=== PATIENT | female | born 1995 | race Caucasian/White ===

== ENCOUNTER 2020-12-24 15:16 | Inpatient (IN) | payer OTHER ==
[~2020-12-24] VITALS: Ht 157.5 cm; Wt 77.3 kg
[2021-01-02 06:00] VITALS: BP 134/90
[2021-01-02] MEDS: LACTATED RINGERS 1,000 ML IV SCH ×4 (06:00→22:00)
[2021-01-02] MEDS: D5%-LACTATED RINGERS 1,000 ML IV SCH ×3 (06:00→22:00)
[2021-01-02] MEDS ORDERED: CALCIUM CARBONATE 500 MG TAB.CHEW PO PRN (06:00)
[2021-01-02] MEDS ORDERED: MISOPROSTOL 25 MCG TABLET VG PRN (06:00)
[2021-01-02] MEDS ORDERED: TERBUTALINE 1 MG/ML, 1ML IVPush PRN (06:00)
[2021-01-02] MEDS ORDERED: OXYTOCIN 30U/ 0.9% NaCL 500ML 500 ML IV ONE (06:00)
[2021-01-02] MEDS ORDERED: FENTANYL PF 100 MCG/2ML IVPush PRN (06:00)
[2021-01-02] MEDS ORDERED: ONDANSETRON 2MG/ML, 2ML IVPush PRN (06:00)
[2021-01-02] MEDS ORDERED: FENTANYL PF 100 MCG/2ML IV PRN (06:00)
[2021-01-02] MEDS ORDERED: TERBUTALINE 1 MG/ML, 1ML SQ PRN (06:00)
[2021-01-02] MEDS ORDERED: OXYTOCIN 30U/ 0.9% NaCL 500ML 500 ML IV PRN (06:00)
[2021-01-02] MEDS ORDERED: NEWBORN KIT ONE (06:11)
[2021-01-02] MEDS ORDERED: MISOPROSTOL 200 MCG TABLET ONE (06:11)
[2021-01-02 06:16] LABS: BASOPHILS % (AUTO) 0 % (0-1); EOSINOPHILS % (AUTO) 0 % (1-7); LYMPHOCYTES % (AUTO) 27 % (22-44); MEAN CORPUSCULAR HEMOGLOBIN 32.1 pg (27.0-34.8); MEAN CORPUSCULAR HGB CONC 34.9 g/dL (32.4-35.8); MEAN PLATELET VOLUME 8.9 fL (7.4-10.4); MONOCYTES % (AUTO) 6 % (2-9); NEUTROPHILS % (AUTO) 67 % (42-75); PLATELET COUNT 246 x10^3/uL (130-400); RED BLOOD COUNT 4.33 x10^6/uL (3.82-5.3); RED CELL DISTRIBUTION WIDTH 12.8 % (9.6-15.2)
[2021-01-02 06:21] LABS: MD NO
[2021-01-02] MEDS ORDERED: FENTANYL/BUPIV./NS/PF 250 ML EPIDCONT ONE (18:58)
[2021-01-02] MEDS ORDERED: EPHEDRINE 50 MG/ML, 1ML IVPush PRN (19:30)
[2021-01-02] MEDS ORDERED: NALOXONE 0.4 MG/ML, 1ML IVPush PRN (19:30)
[2021-01-02] MEDS ORDERED: FENTANYL/BUPIV./NS/PF 250 ML EPIDCONT SCH (19:30)
[2021-01-02] MEDS ORDERED: LACTATED RINGERS 1,000 ML IVBOLUS PRN (19:30)
[2021-01-02] MEDS ORDERED: BUPIVACAINE 0.25% ONE (19:34)
[2021-01-03] MEDS: LACTATED RINGERS 1,000 ML IV SCH ×3 (03:30→20:00)
[2021-01-03] MEDS ORDERED: IBUPROFEN 600 MG TABLET ONE (08:40)
[2021-01-03] MEDS: IBUPROFEN 600 MG TABLET PO PRN ×2 (08:45→20:00)
[2021-01-03] MEDS ORDERED: HYDROcodone/APAP 5/325 TABLET PO PRN (10:00)
[2021-01-03] MEDS: OXYTOCIN 30U/ 0.9% NaCL 500ML 500 ML IV SCH ×2 (10:00→20:15)
[2021-01-03] MEDS ORDERED: ONDANSETRON 2MG/ML, 2ML IV PRN (10:00)
[2021-01-03] MEDS ORDERED: ACETAMINOPHEN 325 MG TABLET PO PRN ×2 (10:00)
[2021-01-03] MEDS ORDERED: MISOPROSTOL 200 MCG TABLET PR PRN (10:00)
[2021-01-03] MEDS ORDERED: METHYLERGONOVINE 0.2 MG/ML IM PRN (10:00)
[2021-01-03] MEDS ORDERED: CARBOPROST TROMETHAMINE 250 MCG/ML, 1ML IM PRN (10:00)
[2021-01-03] MEDS ORDERED: SIMETHICONE 80 MG CHEW TAB PO PRN (10:00)
[2021-01-03 11:15] VITALS: BP 121/80
[2021-01-03 15:49] VITALS: BP 116/78
[2021-01-03 16:19] LABS: BASOPHILS % (AUTO) 1 % (0-1); EOSINOPHILS % (AUTO) 0 % (1-7); LYMPHOCYTES % (AUTO) 12 % (22-44); MEAN CORPUSCULAR HEMOGLOBIN 32.1 pg (27.0-34.8); MEAN CORPUSCULAR HGB CONC 34.9 g/dL (32.4-35.8); MEAN PLATELET VOLUME 9.2 fL (7.4-10.4); MONOCYTES % (AUTO) 6 % (2-9); NEUTROPHILS % (AUTO) 81 % (42-75); PLATELET COUNT 227 x10^3/uL (130-400); RED BLOOD COUNT 3.48 x10^6/uL (3.82-5.3); RED CELL DISTRIBUTION WIDTH 12.8 % (9.6-15.2)
[2021-01-03 16:23] LABS: MD NO
[2021-01-03 19:40] VITALS: BP 126/82
[2021-01-03] MEDS: DOCUSATE 100 MG CAPSULE PO PRN (20:00)
[2021-01-04 01:40] VITALS: BP 117/77
[2021-01-04] MEDS: LACTATED RINGERS 1,000 ML IV SCH (03:30)
[2021-01-04 05:10] VITALS: BP 124/85
[2021-01-04] MEDS: IBUPROFEN 600 MG TABLET PO PRN (05:15)
[2021-01-04] MEDS ORDERED: IBUP-1222 PO (06:56)
[2021-01-04 07:40] VITALS: BP 126/82
[2021-01-04] MEDS: DOCUSATE 100 MG CAPSULE PO PRN (07:43)
[2021-01-04] MEDS ORDERED: PRENATAL VIT/IRON/FA 1 EACH TABLET PO SCH (09:00)
== END 2021-01-04 13:25 | disposition home or self-care (01) | DRG 807 ==
LOC: LDIP 01-02 04:58 → 2NW 01-03 11:05
PROVIDERS: ADMIT Obstetrics & Gynecology; ATTEND Obstetrics & Gynecology
PROC: 10E0XZZ Delivery of Products of Conception, External Approach (ICD-10-PCS; principal; 2021-01-03)
PROC: 10907ZC Drainage of Amniotic Fluid, Therapeutic from Products of Conception, Via Natural or Artificial Opening (ICD-10-PCS; 2021-01-03)
PROC: 3E0P7VZ Introduction of Hormone into Female Reproductive, Via Natural or Artificial Opening (ICD-10-PCS; 2021-01-03)
PROC: 10H07YZ Insertion of Other Device into Products of Conception, Via Natural or Artificial Opening (ICD-10-PCS; 2021-01-03)
PROC: 3E0R3BZ Introduction of Anesthetic Agent into Spinal Canal, Percutaneous Approach (ICD-10-PCS; 2021-01-03)
PROC: 00HU33Z Insertion of Infusion Device into Spinal Canal, Percutaneous Approach (ICD-10-PCS; 2021-01-03)
PROC: 0HQ9XZZ Repair Perineum Skin, External Approach (ICD-10-PCS; 2021-01-03)
DX: O48.0 Post-term pregnancy (principal); Z37.0 Single live birth; Z3A.41 41 weeks gestation of pregnancy; Z20.822 Contact with and (suspected) exposure to COVID-19; O77.0 Labor and delivery complicated by meconium in amniotic fluid; O69.81X0 Labor and delivery complicated by cord around neck, without compression, not applicable or unspecified; O70.0 First degree perineal laceration during delivery
CPT/HCPCS: 36415; J7121; 85025; 86592; 86850; 86900; 87635; G0378; J2405; J2590; J3010; J7120

== ENCOUNTER 2020-12-29 11:59 | Outpatient (CLI) | payer OTHER ==
[~2020-12-29] VITALS: Ht 157.5 cm; Wt 77.3 kg
[2020-12-29 12:19] VITALS: BP 125/76
[2020-12-29 12:22] LABS: MICROSCOPIC NOT IND
[2020-12-29 12:32] LABS: BASOPHILS % (AUTO) 0 % (0-1); EOSINOPHILS % (AUTO) 0 % (1-7); LYMPHOCYTES % (AUTO) 36 % (22-44); MD NO; MEAN CORPUSCULAR HGB CONC 34.6 g/dL (32.4-35.8); MONOCYTES % (AUTO) 6 % (2-9); NEUTROPHILS % (AUTO) 58 % (42-75); PLATELET COUNT 263 x10^3/uL (130-400); RED BLOOD COUNT 4.43 x10^6/uL (3.82-5.3); RED CELL DISTRIBUTION WIDTH 12.7 % (9.6-15.2)
[2020-12-29 12:34] LABS: CREATININE,URINE RANDOM 17.1 mg/dL
[2020-12-29 12:39] LABS: ANION GAP 7 mmol/L (5-15); CALCIUM 8.7 mg/dL (8.5-10.1); CHLORIDE 107 mmol/L (98-107)
[2020-12-29 12:43] LABS: ALANINE AMINOTRANSFERASE 34 U/L (12-78); ALKALINE PHOSPHATASE 267 U/L (45-117); BILIRUBIN, DIRECT 0.2 mg/dL (0.1-0.2); BILIRUBIN,TOTAL 0.9 mg/dL (0.2-1.0); CREATININE 0.61 mg/dL (0.55-1.02); TOTAL PROTEIN 6.9 g/dL (6.4-8.2)
== END 2020-12-29 13:15 | disposition home or self-care (01) ==
LOC: LDOP 11:59
PROVIDERS: ATTEND Obstetrics & Gynecology
DX: O13.3 Gestational [pregnancy-induced] hypertension without significant proteinuria, third trimester (principal); Z3A.40 40 weeks gestation of pregnancy
CPT/HCPCS: 36415; 59025; 80053; 81003; 82248; 82570; 84156; 84550; 85025

== ENCOUNTER 2021-01-10 17:31 | Observation (INO) | payer OTHER ==
[~2021-01-10] VITALS: Ht 157.5 cm; Wt 70.4 kg
[~2021-01-10 17:31] MED LIST: IBUP-1222 PO
--- NOTE | 2021-01-10 18:20 | NUR ---
7 days post . Sudden onset abd pain at approx noon. Then noticed fevers and chills at 1500. PT POSTIONED TO COMFORT. ROSSANA. ATTACHED TO MONITORS. VSS. PT REPORTS 102.4 TEMP AT HOME. MATT BISHOP TO BEDSIDE FOR EVALUATION. AT BEDSIDE.
[2021-01-10] MEDS ORDERED: ONDANSETRON 2MG/ML, 2ML IVPush ONE (18:30)
[2021-01-10] MEDS ORDERED: SODIUM CHLORIDE 0.9% 1,000ML IVBOLUS ONE (18:30)
--- NOTE | 2021-01-10 18:51 | NUR ---
REPORT RECEIVED FROM BASILIA BILL. PT RESTING COMFORTABLY IN [facility]. IV FLUIDS INFUSING. CALL LIGHT WITHIN REACH. AT BEDSIDE.
--- NOTE | 2021-01-10 19:00 | NUR ---
US AT BEDSIDE.
[2021-01-10 19:03] LABS: BASOPHILS % (AUTO) 0 % (0-1); EOSINOPHILS % (AUTO) 0 % (1-7); LYMPHOCYTES % (AUTO) 9 % (22-44); MEAN CORPUSCULAR HEMOGLOBIN 32.1 pg (27.0-34.8); MEAN CORPUSCULAR HGB CONC 34.8 g/dL (32.4-35.8); MEAN PLATELET VOLUME 6.4 fL (7.4-10.4); MONOCYTES % (AUTO) 6 % (2-9); NEUTROPHILS % (AUTO) 85 % (42-75); PLATELET COUNT 645 x10^3/uL (130-400); RED BLOOD COUNT 3.78 x10^6/uL (3.82-5.3); RED CELL DISTRIBUTION WIDTH 13.1 % (9.6-15.2)
[2021-01-10 19:14] LABS: ALBUMIN 3.3 g/dL (3.4-5.0); ANION GAP 7 mmol/L (5-15); CALCIUM 8.8 mg/dL (8.5-10.1); CHLORIDE 107 mmol/L (98-107)
[2021-01-10 19:17] LABS: ALANINE AMINOTRANSFERASE 64 U/L (12-78); ALKALINE PHOSPHATASE 189 U/L (45-117); BILIRUBIN,TOTAL 0.8 mg/dL (0.2-1.0); CREATININE 0.78 mg/dL (0.55-1.02); TOTAL PROTEIN 7.8 g/dL (6.4-8.2)
--- NOTE | 2021-01-10 19:23 | NUR ---
RN AT BEDSIDE FOR TRANSVAGINAL US WITH US TECH
[2021-01-10 20:08] LABS: MICROSCOPIC INDICATED
--- NOTE | 2021-01-10 20:32 | NUR ---
[place] CALL LIGHT WITHIN REACH. UP FOR RECHECK.
[2021-01-10] MEDS ORDERED: CEFTRIAXONE 1,000 MG in DEXTROSE 5% 50 ML IVPB ONE (21:00)
[2021-01-10] MEDS ORDERED: ONDANSETRON 2MG/ML, 2ML IV PRN (21:30)
[2021-01-10] MEDS ORDERED: SIMETHICONE 80 MG CHEW TAB PO PRN (21:30)
[2021-01-10] MEDS ORDERED: IBUPROFEN 800 MG TABLET PO PRN (21:30)
[2021-01-10] MEDS ORDERED: HYDROcodone/APAP 5/325 TABLET PO PRN (21:30)
[2021-01-10] MEDS: AMPICILLIN/SULBACTAM 3 GM in SODIUM CHLORIDE 0.9% 100 ML IV SCH (23:19)
[2021-01-10] MEDS: ACETAMINOPHEN 325 MG TABLET PO PRN (23:40)
[2021-01-10 23:45] VITALS: BP 128/84
[2021-01-11 01:48] VITALS: BP 125/72
[2021-01-11] MEDS: AMPICILLIN/SULBACTAM 3 GM in SODIUM CHLORIDE 0.9% 100 ML IV SCH ×4 (05:04→23:03)
[2021-01-11 05:10] VITALS: BP 123/77
[2021-01-11 07:11] LABS: BASOPHILS % (AUTO) 0 % (0-1); EOSINOPHILS % (AUTO) 0 % (1-7); LYMPHOCYTES % (AUTO) 16 % (22-44); MEAN CORPUSCULAR HEMOGLOBIN 32.5 pg (27.0-34.8); MEAN CORPUSCULAR HGB CONC 34.9 g/dL (32.4-35.8); MEAN PLATELET VOLUME 6.1 fL (7.4-10.4); MONOCYTES % (AUTO) 6 % (2-9); NEUTROPHILS % (AUTO) 77 % (42-75); PLATELET COUNT 577 x10^3/uL (130-400); RED BLOOD COUNT 3.26 x10^6/uL (3.82-5.3); RED CELL DISTRIBUTION WIDTH 12.9 % (9.6-15.2)
[2021-01-11 07:35] VITALS: BP 122/80
[2021-01-11] MEDS: DOCUSATE 100 MG CAPSULE PO PRN (07:59)
[2021-01-11] MEDS: PRENATAL VIT/IRON/FA 1 EACH TABLET PO SCH (07:59)
[2021-01-11] MEDS: ACETAMINOPHEN 325 MG TABLET PO PRN ×2 (10:24→16:16)
[2021-01-11 11:55] VITALS: BP 131/85
[2021-01-11 16:15] VITALS: BP 119/78
[2021-01-11 19:31] VITALS: BP 124/81
[2021-01-12] VITALS: BP 122/82
[2021-01-12 04:00] VITALS: BP 128/89
[2021-01-12] MEDS: AMPICILLIN/SULBACTAM 3 GM in SODIUM CHLORIDE 0.9% 100 ML IV SCH ×2 (05:22→11:11)
[2021-01-12 05:32] LABS: BASOPHILS % (AUTO) 0 % (0-1); EOSINOPHILS % (AUTO) 1 % (1-7); LYMPHOCYTES % (AUTO) 27 % (22-44); MEAN CORPUSCULAR HEMOGLOBIN 32.7 pg (27.0-34.8); MEAN CORPUSCULAR HGB CONC 35.5 g/dL (32.4-35.8); MEAN PLATELET VOLUME 6.3 fL (7.4-10.4); MONOCYTES % (AUTO) 8 % (2-9); NEUTROPHILS % (AUTO) 64 % (42-75); PLATELET COUNT 552 x10^3/uL (130-400); RED BLOOD COUNT 3.02 x10^6/uL (3.82-5.3)
[2021-01-12 08:08] VITALS: BP 116/75
[2021-01-12] MEDS: DOCUSATE 100 MG CAPSULE PO PRN (08:17)
[2021-01-12] MEDS: PRENATAL VIT/IRON/FA 1 EACH TABLET PO SCH (08:17)
== END 2021-01-12 15:05 | disposition home or self-care (01) ==
LOC: ED 19:27 → INTOOBSV 21:27 → EDIP 21:27 → 2NW 22:31 → UNDODISIN 01-12 15:05 → UNDODISOB 01-12 15:05
PROVIDERS: ADMIT Obstetrics & Gynecology; ATTEND Obstetrics & Gynecology
DX: O86.4 Pyrexia of unknown origin following delivery (principal); O90.89 Other complications of the puerperium, not elsewhere classified; R10.30 Lower abdominal pain, unspecified; O86.12 Endometritis following delivery; O86.22 Infection of bladder following delivery; O99.13 Other diseases of the blood and blood-forming organs and certain disorders involving the immune mechanism complicating the puerperium; D72.829 Elevated white blood cell count, unspecified
CPT/HCPCS: 36415; 71045; 76830; 80053; 81001; 83605; 84145; 85025; 87040; 87086; 96365; 96366; 96367; 99285; G0378; J0295; J0696; J7030